=== PATIENT | female | born 1995 | race Caucasian/White ===

== ENCOUNTER 2017-09-28 00:39 | Emergency (ER) | payer MEDICAID ==
[~2017-09-28] VITALS: Ht 154.9 cm; Wt 63.0 kg
[2017-09-28 00:45] VITALS: Ht 154.9 cm; Wt 63.0 kg
[2017-09-28 02:17] VITALS: BP 120/78
== END 2017-09-28 02:17 | disposition home or self-care (01) ==
LOC: ED 00:39
DX: S01.111A Laceration without foreign body of right eyelid and periocular area, initial encounter (principal); S09.90XA Unspecified injury of head, initial encounter; W01.0XXA Fall on same level from slipping, tripping and stumbling without subsequent striking against object, initial encounter; Y93.89 Activity, other specified; Y92.89 Other specified places as the place of occurrence of the external cause; Y99.8 Other external cause status
CPT/HCPCS: 90715; J2001

== ENCOUNTER 2017-10-01 13:52 | Emergency (ER) | payer MEDICAID ==
[~2017-10-01] VITALS: Ht 154.9 cm; Wt 61.9 kg
[2017-10-01 14:00] VITALS: Ht 154.9 cm; Wt 61.9 kg
[2017-10-01 15:00] VITALS: BP 131/73
== END 2017-10-01 15:00 | disposition home or self-care (01) ==
LOC: ED 13:52
DX: S01.111D Laceration without foreign body of right eyelid and periocular area, subsequent encounter (principal); X58.XXXD Exposure to other specified factors, subsequent encounter